=== PATIENT | male | born 1990 | race Caucasian/White ===

== ENCOUNTER 2020-02-14 21:12 | Emergency (ER) | payer OTHER ==
[~2020-02-14] VITALS: Ht 175.3 cm; Wt 81.8 kg
[~2020-02-14 21:12] MED LIST: NOCURR
[2020-02-14 21:14] VITALS: BP 137/99
== END 2020-02-14 22:33 | disposition left against medical advice (07) ==
LOC: EMS 21:12
DX: M79.652 Pain in left thigh (principal); Z53.21 Procedure and treatment not carried out due to patient leaving prior to being seen by health care provider